=== PATIENT | female | born 1965 | race Caucasian/White ===

== ENCOUNTER 2020-11-05 10:32 | Inpatient (IN) | payer MEDICARE, MEDICAID ==
[2020-11-05 11:40] LABS: CHLORIDE,CL 104 mEq/L (98-106); SODIUM,NA 140 mEq/L (136-145)
[2020-11-05] MEDS ORDERED: Acetaminophen 325 MG Tab PO PRN (12:17)
[2020-11-05] MEDS: Sodium Chloride 0.9% 1,000 ML IV SCH ×2 (13:06→22:03)
[2020-11-05] MEDS: Azithromycin 500 MG in Sodium Chloride 0.9% 250 ML IV SCH (14:41)
[2020-11-05] MEDS: cefTRIAXone 1 GM Vial IVPUSH SCH (16:01)
[2020-11-05] MEDS ORDERED: Polyvinyl Alcohol 1.4% Ophth Soln 15 ML Bottle EYEBOTH PRN (16:24)
[2020-11-05] MEDS ORDERED: Polyethylene Glycol 3350 Powder 17 GM Packet PO SCH (16:30)
[2020-11-05] MEDS: Donepezil 5 MG Tab PO SCH (19:30)
[2020-11-05] MEDS: Melatonin 3 MG Tab PO SCH (19:30)
[2020-11-05] MEDS: Famotidine 20 MG Tab PO SCH (19:30)
[2020-11-05] MEDS: LORazepam 0.5 MG Tab PO SCH (19:30)
[2020-11-05] MEDS: Loratadine 10 MG Tab PO SCH (19:30)
[2020-11-05] MEDS: traZODone 50 MG Tab PO SCH (19:30)
[2020-11-05] MEDS: Docusate Sodium 100 MG Cap PO SCH (19:30)
[2020-11-05] MEDS: Memantine 10 MG Tab PO SCH (19:30)
[2020-11-05] MEDS ORDERED: Non-Formulary Medication 1 Each (Lorazepam [Ativan] 1 MG Tablet) PO SCH (20:00)
[2020-11-05] MEDS: Ceres/Mineral Oil/Petrolatum/Wool Alcohol Cream 113 GM Tube TOP SCH (21:03)
[2020-11-06] MEDS: Sodium Chloride 0.9% 1,000 ML IV SCH ×2 (06:05→14:17)
[2020-11-06] MEDS: LORazepam 0.5 MG Tab PO SCH ×3 (07:10→20:06)
[2020-11-06 07:38] LABS: CHLORIDE,CL 112 mEq/L (98-106); SODIUM,NA 143 mEq/L (136-145)
[2020-11-06] MEDS: Levothyroxine 112 MCG Tab PO SCH (07:48)
[2020-11-06] MEDS: Memantine 10 MG Tab PO SCH ×2 (07:48→20:06)
[2020-11-06] MEDS: Famotidine 20 MG Tab PO SCH ×2 (07:48→20:06)
[2020-11-06] MEDS: Vitamin B6-pyridOXINE 100 MG Tab PO SCH (07:48)
[2020-11-06] MEDS: Docusate Sodium 100 MG Cap PO SCH ×2 (07:48→20:05)
[2020-11-06] MEDS: Enoxaparin 30 MG/0.3 ML Syringe SUBCUT SCH (07:49)
[2020-11-06] MEDS ORDERED: ACETAMINOPHEN PO SCH (08:00)
[2020-11-06] MEDS ORDERED: DIPHENHYDRAMINE PO SCH (08:00)
[2020-11-06] MEDS: Ceres/Mineral Oil/Petrolatum/Wool Alcohol Cream 113 GM Tube TOP SCH ×3 (08:47→20:08)
[2020-11-06 11:00] LABS: CORONAVIRUS COVID-19 NAA NEGATIVE (NEGATIVE)
--- NOTE | 2020-11-06 11:05 | PN ---
DATE: 11/06/2020 S: Ms. Fernandez was admitted by [facility] yesterday for lethargy, poor appetite, and some weakness. She was afebrile, but had an elevated white count. Workup showed a likely pneumonia as the patient was having some occasional cough. She has clinically done well since admission. She has been on Rocephin and Zithromax with good results. Remains afebrile, not requiring supplemental O2. O: GENERAL: She is pleasant, alert, cooperative. HEENT: Grossly unchanged. NECK: Veins are flat. LUNGS: Sounds do reveal some right lower lobe rales. CARDIAC: Tones are regular. ABDOMEN: Soft. EXTREMITIES: She has no peripheral edema. ASSESSMENT: 1. PNEUMONIA. 2. ALZHEIMER'S DEMENTIA. 3. DOWN SYNDROME. 4. HYPOTHYROIDISM. P: The patient's lab work shows improvement both in her white blood cell count and CRP today. We will continue with current cares and likely the patient will be able to be discharged within the next day or two. No other DICTATION ENDS HERE. ERICH/VERNA /[id number]
[2020-11-06] MEDS: FLUOROMETHOLONE EYELF SCH (13:16)
[2020-11-06] MEDS: OLANZAPINE 5 MG PO SCH ×3 (13:16→20:10)
[2020-11-06] MEDS: Azithromycin 500 MG in Sodium Chloride 0.9% 250 ML IV SCH (14:16)
[2020-11-06] MEDS: cefTRIAXone 1 GM Vial IVPUSH SCH (16:57)
[2020-11-06] MEDS: Donepezil 5 MG Tab PO SCH (20:05)
[2020-11-06] MEDS: Melatonin 3 MG Tab PO SCH (20:06)
[2020-11-06] MEDS: Loratadine 10 MG Tab PO SCH (20:06)
[2020-11-06] MEDS: traZODone 50 MG Tab PO SCH (20:06)
[2020-11-07] MEDS: Sodium Chloride 0.9% 1,000 ML IV SCH (06:21)
[2020-11-07] MEDS: LORazepam 0.5 MG Tab PO SCH ×2 (07:31→12:09)
[2020-11-07] MEDS: Famotidine 20 MG Tab PO SCH (07:32)
[2020-11-07] MEDS: Levothyroxine 112 MCG Tab PO SCH (07:32)
[2020-11-07] MEDS: Docusate Sodium 100 MG Cap PO SCH (07:32)
[2020-11-07] MEDS: Vitamin B6-pyridOXINE 100 MG Tab PO SCH (07:32)
[2020-11-07] MEDS: Memantine 10 MG Tab PO SCH (07:32)
[2020-11-07] MEDS: Enoxaparin 30 MG/0.3 ML Syringe SUBCUT SCH (07:33)
[2020-11-07] MEDS: Ceres/Mineral Oil/Petrolatum/Wool Alcohol Cream 113 GM Tube TOP SCH ×2 (07:33→15:08)
[2020-11-07] MEDS: OLANZAPINE 5 MG PO SCH (07:34)
[2020-11-07] MEDS: FLUOROMETHOLONE EYELF SCH (07:34)
[2020-11-07 12:20] VITALS: BP 146/93; PULSE 100
[2020-11-07] MEDS ORDERED: cefTRIAXone 1 GM Vial IVPUSH SCH (13:30)
[2020-11-07] MEDS: Azithromycin 500 MG in Sodium Chloride 0.9% 250 ML IV SCH (13:37)
--- NOTE | 2020-11-07 15:01 | DISCH ---
ADMISSION DIAGNOSES: 1. Pneumonia. 2. Down syndrome. 3. Dementia. 4. Hypothyroidism. DISCHARGE DIAGNOSIS: 1. PNEUMONIA. 2. DOWN SYNDROME. 3. DEMENTIA. 4. HYPOTHYROIDISM. HISTORY: Brenda is a 55-year-old who presented for evaluation by [facility] Amezcua and was found to have right-sided pneumonia. She was admitted for appropriate IV antibiotics. At the time of her admission, white count was elevated at 13,000. Her CRP was 27. Labs were otherwise fine including a lactic acid. HOSPITAL COURSE: The patient was started on IV Zithromax and Rocephin. Over the 48 hours of her stay, she essentially remained afebrile. She has not required any supplemental O2. Her CBC and CRP were both improved the day after admission. Clinically, she is eating well. Looks stable. We are going to give her third day of IV antibiotics today and then discharge her with a finished course of Ceftin. She will follow up with her primary provider next week in routine fashion. COMPLICATIONS: During her stay were none. CONSULTATIONS: None. DISPOSITION: Discharged home to [address] [place] [address] ERICH/VERNA /[id number]
== END 2020-11-07 16:00 | disposition home or self-care (01) | DRG 195 ==
LOC: CC.MS 10:32 → CC.CHC 10:32 → UNDOADMIN 12:09 → CC.MS 12:09
PROVIDERS: ADMIT Physician Assistant Medical; ATTEND Family Medicine
DX: J18.9 Pneumonia, unspecified organism (principal); Q90.9 Down syndrome, unspecified; E03.9 Hypothyroidism, unspecified; F41.9 Anxiety disorder, unspecified; F32.9 Major depressive disorder, single episode, unspecified; G30.9 Alzheimer's disease, unspecified; F02.80 Dementia in other diseases classified elsewhere, unspecified severity, without behavioral disturbance, psychotic disturbance, mood disturbance, and anxiety; Z20.822 Contact with and (suspected) exposure to COVID-19; K21.9 Gastro-esophageal reflux disease without esophagitis; Z79.1 Long term (current) use of non-steroidal anti-inflammatories (NSAID); Z79.899 Other long term (current) drug therapy
CPT/HCPCS: 0240U; 36415; 71046; 80048; 80053; 81003; 83605; 83735; 85025; 86140; 87040; A9270-GY; J0456; J0696; J1650; J7030; J7050

== ENCOUNTER 2022-08-26 15:17 | Inpatient (IN) | payer MEDICARE, MEDICAID ==
[2022-08-26] MEDS ORDERED: Albuterol/Ipratropium 3.0-0.5 MG/3 ML Neb Soln NEB ONE ×2 (15:29→22:30)
[2022-08-26 15:36] LABS: BASOPHILS ABSOLUTE AUTO 0.02 10^3/uL (0.00-0.50); BASOPHILS PERCENT AUTO 0.1 % (0-1); EOSINOPHILS ABSOLUTE AUTO 0.03 10^3/uL (0.00-1.50); EOSINOPHILS PERCENT AUTO 0.2 % (0-6); HEMATOCRIT 44.1 % (37.0-47.0); HEMOGLOBIN 13.6 g/dL (12.0-16.0); IMMATURE GRAN ABSOLUTE AUTO 0.04 10^3/uL (0.00-0.49); IMMATURE GRAN PERCENT AUTO 0.3 % (0.0-4.9); LYMPHOCYTES ABSOLUTE AUTO 1.09 10^3/uL (0.60-5.00); LYMPHOCYTES PERCENT AUTO 7.4 % (24-44); MEAN CORPUSCULAR HEMOGLOBIN 33.6 pg (27.0-32.0); MEAN CORPUSCULAR HGB CONC 30.8 g/dL (32.0-36.0); MEAN CORPUSCULAR VOLUME 108.9 fL (83.0-97.0); MONOCYTES ABSOLUTE AUTO 0.99 10^3/uL (0.00-1.50); MONOCYTES PERCENT AUTO 6.8 % (0-10); NEUTROPHILS ABSOLUTE AUTO 12.47 x10^3/uL (1.80-8.00); NEUTROPHILS PERCENT AUTO 85.2 % (41-71); PLATELET COUNT,PLT 274 10^3/uL (150-400); RED BLOOD CELL COUNT 4.05 x10^6/uL (4.00-5.50); WHITE BLOOD CELL COUNT,WBC 14.6 10^3/uL (4.0-11.0)
[2022-08-26] MEDS ORDERED: Dexamethasone 4 MG/ML SDV IVPUSH ONE (15:44)
[2022-08-26 15:58] LABS: LACTIC ACID 1.1 mmol/L (0.4-2.0)
[2022-08-26 16:01] LABS: ALBUMIN 2.5 g/dL (3.4-5.0); BILIRUBIN TOTAL 0.3 mg/dL (0.0-1.0); CALCIUM 8.6 mg/dL (8.4-10.1); EST CRCL DRUG DOSING (CG) 43.51 mL/min; MAGNESIUM 2.3 mg/dL (1.8-2.4); POTASSIUM,K 4.4 mEq/L (3.5-5.0); PROTEIN TOTAL,TP 7.5 g/dL (6.4-8.2)
[2022-08-26] MEDS ORDERED: Iopamidol 755 Mg/ML 100 ML Bottle IVPUSH ONE (16:13)
[2022-08-26] MEDS ORDERED: Furosemide 40 MG/4 ML VIAL IVPUSH ONE (16:13)
[2022-08-26] MEDS ORDERED: Cefepime 2 GM in Sodium Chloride 0.9% 100 ML IV SCH (16:45)
[2022-08-26] MEDS ORDERED: Docusate Sodium 100 MG Cap PO PRN (18:34)
[2022-08-26] MEDS ORDERED: Albuterol 0.083% 2.5 MG/3 ML Neb Soln NEB PRN (18:34)
[2022-08-26] MEDS ORDERED: Acetaminophen 325 MG Tab PO PRN (18:34)
[2022-08-26] MEDS ORDERED: CARBOXYMETHYLCELLULOS EYEBOTH PRN (18:39)
[2022-08-26] MEDS ORDERED: GLYCERIN EYEBOTH PRN (18:39)
[2022-08-26] MEDS ORDERED: Polyethylene Glycol 3350 Powder 17 GM Packet PO SCH (18:45)
[2022-08-26] MEDS ORDERED: Albuterol/Ipratropium 3.0-0.5 MG/3 ML Neb Soln NEB SCH (20:00)
[2022-08-26] MEDS ORDERED: Melatonin 3 MG Tab PO SCH (20:00)
[2022-08-26] MEDS ORDERED: Ceres/Mineral Oil/Petrolatum/Wool Alcohol Cream 113 GM Tube TOP SCH (20:00)
[2022-08-26] MEDS ORDERED: traZODone 50 MG Tab PO SCH (20:00)
[2022-08-26] MEDS ORDERED: Donepezil 5 MG Tab PO SCH (20:00)
[2022-08-26] MEDS ORDERED: Apixaban 5 MG Tab PO SCH (20:00)
[2022-08-26] MEDS ORDERED: Memantine 10 MG Tab PO SCH (20:00)
[2022-08-26] MEDS ORDERED: LORazepam 0.5 MG Tab PO SCH (20:00)
[2022-08-26] MEDS ORDERED: Albuterol 0.083% 2.5 MG/3 ML Neb Soln NEB ONE ×2 (22:30)
[2022-08-26] MEDS ORDERED: Albuterol/Ipratropium 3.0-0.5 MG/3 ML Neb Soln ONE (22:36)
[2022-08-26] MEDS: Albuterol 0.083% 2.5 MG/3 ML Neb Soln NEB ONE (23:00)
[2022-08-26] MEDS ORDERED: propofoL 100 ML IV SCH (23:15)
[2022-08-26] MEDS ORDERED: Succinylcholine 200 MG/10 ML MDV ONE (23:21)
[2022-08-26] MEDS ORDERED: Norepinephrine 4 MG in Dextrose 5% in Water 246 ML IV SCH ×2 (23:45)
[2022-08-26] MEDS ORDERED: Midazolam 1 MG/ML 2 ML SDV ONE (23:48)
[2022-08-26] MEDS ORDERED: Midazolam 1 MG/ML 2 ML SDV IVPUSH ONE (23:50)
[2022-08-26] MEDS ORDERED: fentaNYL 50 MCG/ML SDV ONE (23:59)
[2022-08-27] MEDS ORDERED: fentaNYL 50 MCG/ML SDV IVPUSH ONE (00:30)
[2022-08-27] MEDS ORDERED: Albuterol/Ipratropium 3.0-0.5 MG/3 ML Neb Soln NEB ONE ×2 (00:30→00:31)
[2022-08-27] MEDS ORDERED: Succinylcholine 200 MG/10 ML MDV IVPUSH STA (00:32)
[2022-08-27] MEDS ORDERED: Etomidate 2 MG/ML 10 ML SDV IVPUSH ONE (00:32)
[2022-08-27] MEDS: Albuterol 0.083% 2.5 MG/3 ML Neb Soln NEB ONE (00:38)
[2022-08-27 02:20] VITALS: BP 86/54; PULSE 81
[2022-08-27] MEDS ORDERED: LORazepam 0.5 MG Tab PO SCH (07:00)
[2022-08-27] MEDS ORDERED: Dexamethasone 4 MG/ML SDV IVPUSH SCH (08:00)
[2022-08-27] MEDS ORDERED: FLUOROMETHOLONE EYELF SCH (08:00)
[2022-08-27] MEDS ORDERED: Furosemide 20 MG/2 ML VIAL IVPUSH SCH (08:00)
[2022-08-27] MEDS ORDERED: Levothyroxine 112 MCG Tab PO SCH (08:00)
[2022-08-27] MEDS ORDERED: lamoTRIgine 100 MG Tab PO SCH (08:00)
[2022-08-27] MEDS ORDERED: Cefepime 2 GM in Sodium Chloride 0.9% 100 ML IV SCH (08:00)
[2022-08-27] MEDS ORDERED: Docusate Sodium 100 MG Cap PO SCH (08:00)
[2022-08-27] MEDS ORDERED: Vitamin B6-pyridOXINE 100 MG Tab PO SCH (08:00)
[2022-08-27] MEDS ORDERED: Multivitamin Tab PO SCH (08:00)
[2022-08-27] MEDS ORDERED: Famotidine 20 MG Tab PO SCH (08:00)
[2022-08-27] MEDS ORDERED: Loratadine 10 MG Tab PO SCH (08:00)
[2022-08-27] MEDS ORDERED: OLANZAPINE 5 MG PO SCH (08:00)
== END 2022-08-27 00:30 | DRG 208 ==
LOC: CC.ED 15:17 → CC.MS 18:10 → UNDOADMIN 18:10 → CC.MS 18:34 → UNDODISIN 08-27 00:30
PROVIDERS: ADMIT Physician Assistant Medical; ATTEND Physician Assistant Medical
PROC: 0BH17EZ Insertion of Endotracheal Airway into Trachea, Via Natural or Artificial Opening (ICD-10-PCS; principal; 2022-08-26)
PROC: 5A1935Z Respiratory Ventilation, Less than 24 Consecutive Hours (ICD-10-PCS; 2022-08-26)
PROC: 02HV33Z Insertion of Infusion Device into Superior Vena Cava, Percutaneous Approach (ICD-10-PCS; 2022-08-26)
DX: J96.01 Acute respiratory failure with hypoxia (principal); J18.9 Pneumonia, unspecified organism; I50.9 Heart failure, unspecified; Z66 Do not resuscitate; K21.9 Gastro-esophageal reflux disease without esophagitis; E03.9 Hypothyroidism, unspecified; Q90.9 Down syndrome, unspecified; F79 Unspecified intellectual disabilities; Z20.822 Contact with and (suspected) exposure to COVID-19; Z88.8 Allergy status to other drugs, medicaments and biological substances; Z79.890 Hormone replacement therapy; Z79.899 Other long term (current) drug therapy
CPT/HCPCS: 51702; 71045; 71275; 80053; 83605; 83735; 83880; 84484; 85025; 85379; 93005; 94640; 96365; 96375; 99285-25; A9270-GY; J0330; J0692; J1100; J1940; J2250; J2704; J3010; J3490; J7060; J7613-GY; J7620-GY; Q9967; U0002